=== PATIENT | female | born 1950 ===

== ENCOUNTER → 2018-08-18 20:43 | Outpatient (REF) | payer OTHER, SELFPAY ==
[2018-08-18 22:19] LABS: Add Manual Diff / Slide Review NO; Basophils Absolute Auto 0 /uL (0-100); Basophils Percent Auto 0.5 % (0-2); Eosinophils Absolute Auto 100 /uL (0-450); Eosinophils Percent Auto 1.1 % (2-4); Hematocrit 44.3 % (36-46); Hemoglobin 14.5 g/dL (12.0-16.0); Lymphocytes Absolute Auto 2800 /uL (1100-4500); Lymphocytes Percent Auto 50.7 % (25-40); Mean Corpuscular HGB Conc 32.8 % (30-36); Mean Corpuscular Hemoglobin 29.8 PG (26-34); Mean Corpuscular Volume 90.7 fL (80-100); Monocytes Absolute Auto 300 /uL (0-900); Monocytes Percent Auto 5.6 % (3-14); Neutrophils Absolute Auto 2400 /uL (1500-7000); Neutrophils Percent Auto 42.1 % (50-75); Platelet Count 187 X10^3/uL (150-400); Red Blood Cell Count 4.89 X10^6/uL (4.0-5.2); Red Cell Distribution Width 14.2 % (11.6-14.8); White Blood Cell Count 5.6 X10^3/uL (4.5-11.0)
[2018-08-18 22:34] LABS: HEMOLYSIS < 15 (0-50); Iron 203 ug/dL (37-170)
[2018-08-18 22:37] LABS: Alanine Aminotransferase 32 IU/L (9-52); Albumin 4.3 g/dL (3.5-5.0); Albumin Globulin Ratio 1.3 (1.0-2.8); Alkaline Phosphatase 85 U/L (38-126); Aspartate Aminotransferase 18 IU/L (14-36); BUN Creatinine Ratio 28.6 (6-22); Bilirubin Total 0.7 mg/dL (0.2-1.3); Blood Urea Nitrogen 20 mg/dL (7-17); Calcium 9.2 mg/dL (8.4-10.2); Carbon Dioxide 29 mmol/L (22-32); Chloride 103 mmol/L (98-107); Cholesterol 222 mg/dL (140-199); Estimated Glomerular Filt Rate > 60.0 mL/min (>60); Globulin 3.2 g/dL (1.7-4.1); Glucose 83 mg/dL (80-110); HDL Cholesterol 34 mg/dL (40-60); HEMOLYSIS < 15 (0-50); LDL Cholesterol Calculated 161 mg/dL (<100); Potassium 4.7 mmol/L (3.4-5.1); Sodium 142 mmol/L (137-145); Total Protein 7.5 g/dL (6.3-8.2); Triglycerides 136 mg/dL (35-150)
[2018-08-18 22:46] LABS: Percent Iron Saturation 49 % (15-50); Total Iron Binding Capacity 417 ug/dL (265-497); Transferrin 336 mg/dL (206-381)
[2018-08-18 22:50] LABS: Hemoglobin A1C% w Est Avg Glu 5.3 % (4.0-6.0)
[2018-08-18 22:52] LABS: Free T3, Triiodothyronine Free 6.04 pg/mL (2.77-5.27); T4 Total Thyroxine 6.37 ug/dL (5.5-11.0)
[2018-08-18 22:53] LABS: Vitamin D 25 Hydroxy (D3) 74.3 ng/mL (30.0-100.0)
[2018-08-18 23:03] LABS: B Type Natriuretic Peptide 103 (<100)
[2018-08-18 23:05] LABS: Thyroid Stimulating Hormone 2.61 uIU/mL (0.47-4.68)
[2018-08-19 09:52] LABS: Ferritin 67.4 ng/mL (11.1-264)
[2018-08-21 15:57] LABS: Insulin Level Total 6.3 uIU/mL (2.0-19.6)
[2018-08-21 18:59] LABS: NT-proBNP (Child <18years) 199 pg/mL
[2018-08-23 11:59] LABS: Testosterone, Total 30.6; Testosterone,Free 4.5
== END ==
LOC: LAB 20:43
PROVIDERS: Visit Provider Family Medicine
DX: Z00.00 Encounter for general adult medical examination without abnormal findings (principal); Z13.1 Encounter for screening for diabetes mellitus; Z13.220 Encounter for screening for lipoid disorders; I50.30 Unspecified diastolic (congestive) heart failure
CPT/HCPCS: 36415; 80053; 80061; 82306; 82728; 83036; 83525; 83540; 83550; 83880; 84402; 84403; 84436; 84443; 84481; 85025